=== PATIENT | male | born 1930 | race Caucasian/White ===

== ENCOUNTER → 2017-01-21 | Day surgery (SDC) | payer OTHER ==
[~2017-01-21] MED LIST: AMARYL PO; ASPIRIN PO; CENTRUM SILVER PO; CRESTOR PO; FISH OIL 1,0001 CAP PO; LISINOPRIL PO; LISINOPRIL20 MG PO; METFORMIN PO; NITROGYLCERIN SUBLINGUAL; PROTONIX PO
--- NOTE | ~2017-01-21 | OR ---
Unit #: [id number] #: [id number] Patient: JET RUIZ [id number] [address] [place], [place] [address] [id number] MR#: [id number] NAME: JET RUIZ ROOM: Date of Procedure: 01/21/2017 Admission Date: 01/21/2017 Surgeon: Richard Aceves M.D. : 1930 Attending Physician: Richard Aceves M.D. Referring Physician: Richard Aceves M.D. Primary Care Physician: Marci Downing A.P.R.N. OPERATIVE REPORT PROCEDURE PERFORMED Colonoscopy with snare polypectomy. 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 MEDICATIONS Monitored anesthesia. POSTOPERATIVE FINDINGS 1. Small 5 mm polyp, transverse colon, snared and sent to pathology. 2. Extensive diverticulosis involving sigmoid colon. PLAN Follow up on pathology report. High-fiber diet. Stool softeners as needed. DESCRIPTION OF PROCEDURE The patient was explained of the procedure, risks, and benefits along with risks and benefits of anesthesia. He was brought to the endoscopy room. Propofol anesthesia was given. Rectal exam was done which was normal. Colonoscope was lubricated passed up the rectum, advanced under direct vision all the way to the cecum. Cecum was identified by ileocecal valve and appendiceal orifice. I then started to pull the scope out carefully looking. Polyp seen in transverse colon, was snared and sent for histopathology. I retroflexed in the rectum, internal hemorrhoids noted. Gently, the scope was pulled out. He tolerated it well. Dictated by... Odalys Sagastume/rosendo TD: 01/22/2017 01:58 JOB #: [id number] CC: Eliecer Brock M.D. Unit #: [id number] #: [id number] Patient: JET RUIZ OPERATIVE REPORT Page 1 of 1 X Richard Aceves MD X PROCEDURE OPERATIVE NOTE
== END | disposition home or self-care (01) ==
LOC: COPS 09:44
DX: D12.3 Benign neoplasm of transverse colon (principal); K57.30 Diverticulosis of large intestine without perforation or abscess without bleeding; K64.8 Other hemorrhoids; E11.9 Type 2 diabetes mellitus without complications; J45.909 Unspecified asthma, uncomplicated; Z79.84 Long term (current) use of oral hypoglycemic drugs; Z79.82 Long term (current) use of aspirin; Z79.899 Other long term (current) drug therapy; Z95.1 Presence of aortocoronary bypass graft; Z98.52 Vasectomy status; Z95.2 Presence of prosthetic heart valve; Z98.890 Other specified postprocedural states
CPT/HCPCS: 82947; 88305; J0290; J1580